=== PATIENT | male | born 1985 | race Caucasian/White ===

== ENCOUNTER 2018-01-03 16:25 | Emergency (ER) | payer OTHER ==
[2018-01-03 16:29] VITALS: TEMP 36.5; Ht 180.3 cm
--- NOTE | 2018-01-03 16:48 | DIAGNOSTIC IMAGING REPORT ---
L FOOT MIN 3 VIEWS ROUTINE CLINICAL HISTORY: left foot injury trauma COMPARISON: None. DISCUSSION: The bones and joint spaces appear intact. There is no evidence of fracture, dislocation or bony disease. Mild soft tissue edema adjacent to the fifth metatarsophalangeal joint. IMPRESSION: Soft tissue edema. No acute bony abnormality. The above report was generated using voice recognition software. It may contain grammatical, syntax or spelling errors. Electronically signed by: Gilson Sofia M.D. 01/03/2018 4:46 PM Dictated Date/Time: 01/03/2018 4:46 PM
[2018-01-03] MEDS ORDERED: TRAMADOL HCL 50 MG TAB PO STA (16:49)
[2018-01-03] MEDS ORDERED: TRAM-10 PO (16:54)
[2018-01-03] MEDS ORDERED: CLR10 PO (16:59)
[2018-01-03 17:12] VITALS: BP 138/87; PULSE 92; O2SAT 99
--- NOTE | 2018-01-03 17:32 | EMERGENCY ROOM VISIT NOTE ---
ED Visit Note First contact with patient: 16:31 Chief Complaint: Left foot pain. History of Present Illness: Mr. Garcia is a 32-year-old white male who is brought into the ED via wheelchair accompanied by his and children complaining of left foot pain. Patient reports approximately 11 AM this morning he was pumping out a basement full of water and accidentally dropped a 20 pound strainer on the top of his left foot. He reports initially there was some mild pain. He finished pumping the basement and then went home and mowed the lawn. After this he went into the house and took off his flip-flops and started having severe pain over the top of the left foot. Since that time his pain has been constant. Currently he describes a combination of sharp and throbbing sensation prominently over the proximal aspect of the first through third metatarsals. He rates his discomfort 10/10. He reports his pain dramatically increases and shoot pains up to the distal tibia with weightbearing and ambulation. Rest subsequently relieves his discomfort. He has not taken any medications for pain prior to arrival at the hospital. He denies any associated symptoms including knee pain, ankle pain, toe pain, foot weakness/numbness/tingling. Additionally he denies any previous significant injuries or surgeries to the left foot. Review of Systems: As noted above in history of present illness. Past Medical History: Status post cleft palate repair and tonsillectomy. Current Medications: Claritin. Allergies to Medications: Latex, penicillin. Social History: Patient is currently employed; he feels safe in his home environment; he admits to tobacco and alcohol use. Physical Examination: Vital Signs: Date Time Temp Pulse Resp B/P (MAP) Pulse Ox O2 Delivery O2 Flow Rate FiO2 01/03/18 17:12 92 18 138/87 99 01/03/18 16:29 36.5 82 20 138/91 98 Room Air GENERAL: 32-year-old male in mild distress due to pain, nontoxic-appearing, afebrile and hemodynamically stable. NEUROLOGICAL: Awake, alert and oriented to person, place and time. Answering questions appropriately and following commands. Good hand eye coordination. No focal motor or sensory deficits. SKIN: Warm, dry and pink. No soft tissue trauma noted. LEFT LOWER EXTREMITY: No gross bony deformity. No tenderness in the knee, lower leg or ankle. Moderate tenderness over the top of the foot in the area of the proximal metatarsals with prominence in the first through third metatarsals. There is mild swelling in this area but no bruising. I do not appreciate any bony deformity or crepitus. He had pain with wiggling his toes but was able to wiggle the toes. Full range of motion in plantarflexion and dorsiflexion of the ankle. No tenderness, swelling or ecchymosis to the plantar surface of the foot. Throughout the foot the skin was warm and pink and capillary refill was brisk. He was able to distinguish light sensations to all dermatomes. ED Course: Patient is assessed as noted above. Patient's medication list was reviewed. Patient was given ice and 50 mg of Ultram by mouth for pain. Left Foot X-Rays: Were read by myself and the radiologist and shows no acute fractures or dislocations. Patient was placed in a postop shoe and on nonweightbearing crutches. Patient was educated about today's findings and instructed on his treatment plan ; he verbalized understanding and agreement with this plan. Clinical Impression: Left foot pain. Decision-Making: Initially my differential diagnosis I considered contusion, fracture, ligamentous injury, tendinous injury and other causes. Disposition: Patient discharged home in stable condition accompanied by his and children; prior to departure he was reassessed and subjectively reported he was feeling better and rated his discomfort 5/10. Plan: Comfort measures including rest, ice, elevation, postop shoe and nonweightbearing crutches were discussed with the patient. Patient was placed on a sliding pain scale of ibuprofen, acetaminophen and Ultram; his name was checked on state database and no red flags were noted and he was given appropriate narcotic precautions. Patient was encouraged to follow-up with orthopedics if no better in 7-10 days. Patient was encouraged return the ED for worsening/uncontrolled pain, uncontrolled swelling, foot weakness/numbness/tingling or any new/concerning symptoms.
== END 2018-01-03 17:13 | disposition home or self-care (01) ==
LOC: C.EDB 16:27 → C.EDD 17:13
DX: M79.672 Pain in left foot (principal); W22.8XXA Striking against or struck by other objects, initial encounter; Z91.040 Latex allergy status; Z88.0 Allergy status to penicillin; F17.200 Nicotine dependence, unspecified, uncomplicated